=== PATIENT | female | born 1995 | race Caucasian/White ===

== ENCOUNTER 2016-12-03 10:34 | Emergency (ER) | payer BC, OTHER ==
[~2016-12-03] VITALS: Ht 172.7 cm; Wt 59.9 kg
[2016-12-03 11:47] LABS: HEMATOCRIT 38.4 % (37.0-47.0); HEMOGLOBIN 12.8 gm/dL (12.0-15.0); MCH 29.5 pg (26.0-34.0); MCHC 33.2 g/dL (28.0-37.0); MCV 88.9 fL (80.0-100.0); PLATELET COUNT 171 thou/uL (150-400); RBC 4.32 mil/uL (4.20-5.00); RDW 13.4 % (10.5-14.5); WBC 5.7 thou/uL (4.0-11.0)
[2016-12-03 11:51] LABS: MANUAL DIFF YES
[2016-12-03 12:06] LABS: CALCIUM 8.9 mg/dL (8.5-10.1); CREATININE 0.9 mg/dL (0.6-1.0); POTASSIUM 3.6 mmol/L (3.5-5.1)
[2016-12-03 12:11] LABS: ALBUMIN 3.9 g/dL (3.4-5.0); TOTAL BILIRUBIN 0.9 mg/dL (<0.1-1.0); TOTAL PROTEIN 7.9 g/dL (6.4-8.2)
[2016-12-03 12:14] LABS: URINE BILIRUBIN NEGATIVE (Negative); URINE BLOOD 2+ (Negative); URINE COLOR YELLOW; URINE GLUCOSE-RANDOM* NEGATIVE (Negative); URINE KETONES TRACE (Negative); URINE NITRITE NEGATIVE (Negative); URINE PROTEIN (DIPSTICK) NEGATIVE (Negative); URINE SPECIFIC GRAVITY <= 1.005 (1.003-1.035); URINE UROBILINOGEN 0.2 E.U./dl (0.2-1.0)
[2016-12-03] MEDS ORDERED: ONDANSETRON HCL4 M2 PO (12:21)
[2016-12-03] MEDS ORDERED: NAPROSYN500 MG PO (12:21)
[2016-12-03 12:22] LABS: ABSOLUTE NEUTROPHILS 4.7 thou/uL (1.4-8.2); TOTAL CELL COUNT 100
[2016-12-03 12:32] VITALS: BP 116/79
[2016-12-03 12:44] LABS: CASTS None Seen /LPF (None Seen); CRYSTALS None Seen /LPF (None Seen); SQUAMOUS 0-3 Few /LPF (0-3)
[2016-12-03 12:45] LABS: BACTERIA 1-9 Few /HPF (None Seen); URINE RBC 0-2 Rare /HPF (0-2); URINE WBC 0-5 Rare /HPF (0-5)
[2016-12-04 20:09] LABS: CHLAMYDIA TRACHOMATIS-PCR Negative (Negative); NEISSERIA GONORRHEA-PCR Negative (Negative)
== END 2016-12-03 12:24 | disposition home or self-care (01) ==
LOC: ER 10:34
PROVIDERS: Nurse Practitioner
DX: N93.8 Other specified abnormal uterine and vaginal bleeding (principal); R19.7 Diarrhea, unspecified; R11.0 Nausea